=== PATIENT | male | born 1940 | race Caucasian/White ===

== ENCOUNTER 2018-06-12 07:02 | Day surgery (SDC) | payer OTHER ==
--- NOTE | 2018-06-07 17:04 | GHP ---
[f rep st] PREOP HISTORY AND PHYSICAL DATE OF ADMISSION: 06/12/2018 CHIEF COMPLAINT: Left inguinal hernia. HISTORY OF PRESENT ILLNESS: The patient is a 78-year-old male who presents for evaluation of a possi ble left inguinal hernia. The patient has noticed a left inguinal bulge for the past 3-4 years. It seems to flatten and reduce. He denies pain, nausea, vomiting, changes in bowel habits, and fevers. No dysuria. He denies any bulge on the right. He has tried to wear a hernia belt in the past, but does not feel that it helps. He has a history of open prostatectomy with a lower midline scar. PAST MEDICAL HISTORY: Hypertension. PAST SURGICAL HISTORY: Foot surgery, left hand surgery, prostatectomy, tonsillectomy. MEDICATIONS: Amlodipine, aspirin, fish oil, vitamin D3. ALLERGIES: No known drug allergies. FAMILY HISTORY: Noncontributory. REVIEW OF SYSTEMS: 10-point review of systems was performed and is negative, except for what is in t he HPI. PHYSICAL EXAMINATION: GENERAL: This is a well-appearing, well-nourished man in no acute distress. HEENT: Normocephalic, atraumatic. No gross hearing deficit. Mucous membranes moist. Pupils are eq ual and round. No scleral icterus. CARDIAC: Regular rate, regular rhythm. No peripheral edema. R ESPIRATORY: No increased work of breathing. Clear to auscultation bilaterally. ABDOMEN: Soft, non tender. Bowel sounds present. Old suprapubic vertical midline scar. Large left inguinal hernia myesha t is reducible, soft and nontender. No hernia palpated on the right side. MUSCULOSKELETAL: Normal gait. Normal nails. Moves all extremities equally. INTEGUMENTARY: Skin is warm and dry. No rashe s. NEUROLOGIC: Awake, alert. Motor grossly intact. PSYCHIATRIC: Normal mood and affect. DISCUSSION AND DECISION-MAKING: This is a 78-year-old male who will need a left inguinal hernia repa ir. Due to his open prostatectomy surgery, he will likely have adhesions and may not be able to perf orm the procedure laparoscopically. In that case, would switch to an open procedure. Also discussed risks and options in full, including bleeding, infection, injury to a nerve, bowel injury, bladder i njury, testicular ischemia, traumatic cord injury, recurrence, and patient wishes to proceed with luis felipe acuna. /[id number]/MODL
[2018-06-12] MEDS ORDERED: LR 1,000 ML IV ONE (07:43)
[2018-06-12] MEDS ORDERED: ceFAZolin 2 GM/DEXTROSE 100 ML IV ONE (07:43)
--- NOTE | 2018-06-12 07:49 | PDANEPAE ---
ANE History of Present Illness 78 year old male for inguinal hernia repair (laparoscopic). ANE Past Medical History - Cardiovascular History Hx Hypertension: Yes Hx Arrhythmias: No Hx Chest Pain: No Hx Coronary Artery / Peripheral Vascular Disease: No Hx CHF / Valvular Disease: No Hx Palpitations: No - Pulmonary History Hx COPD: No Hx Asthma/Reactive Airway Disease: No Hx Recent Upper Respiratory Infection: No Hx Oxygen in Use at Home: No Hx Sleep Apnea: No Sleep Apnea Screening Result - Last Documented: Positive - Neurologic History Hx Cerebrovascular Accident: No Hx Seizures: No Hx Dementia: No - Endocrine History Hx Diabetes: No - Renal History Hx Renal Disorders: No - Liver History Hx Hepatic Disorders: No - Neurological & Psychiatric Hx Hx Neurological and Psychiatric Disorders: No - Cancer History Hx Cancer: Yes Cancer History Comment: PROSTATE - Congenital Disorder History Hx Congenital Disorders: No - GI History Hx Gastrointestinal Disorders: No - Other Health History Other Health History: BRUISES EASILY - Chronic Pain History Chronic Pain: Yes (LT ING HERNIA) - Surgical History Prior Surgeries: PROSTATECTOMY. LT FOOT. TONSILLECTOMY. HEMORRHOIDECTOMY. LT HAND DUPUYTRENS ANE Review of Systems Review of Systems: - Exercise capacity METS (RN): 4 METS ANE Patient History - Allergies Allergies/Adverse Reactions: No Known Allergies Allergy (Unverified 02/02/14 10:48) - Home Medications Home Medications: ASPIRIN HS 02/02/14 [Last Taken Unknown] Amlodipine Bes/Olmesartan Med HS 06/08/18 [Last Taken Unknown] Herbals/Supplements -Info Only DAILY 06/08/18 [Last Taken Unknown] - Smoking Hx Smoking Status: Former smoker ANE Labs/Vital Signs - Vital Signs Height: 177.8 cm Weight: 75.189 kg
[2018-06-12] MEDS ORDERED: BUPIVACAINE 0.25% 30 ML SDV ONE (08:12)
--- NOTE | 2018-06-12 08:12 | PDANEPAE ---
ANE History of Present Illness 78 year old male for left inguinal hernia. ANE Past Medical History - Cardiovascular History Hx Hypertension: Yes Hx Arrhythmias: No Hx Chest Pain: No Hx Coronary Artery / Peripheral Vascular Disease: No Hx CHF / Valvular Disease: No Hx Palpitations: No - Pulmonary History Hx COPD: No Hx Asthma/Reactive Airway Disease: No Hx Recent Upper Respiratory Infection: No Hx Oxygen in Use at Home: No Hx Sleep Apnea: No Sleep Apnea Screening Result - Last Documented: Positive - Neurologic History Hx Cerebrovascular Accident: No Hx Seizures: No Hx Dementia: No - Endocrine History Hx Diabetes: No - Renal History Hx Renal Disorders: No - Liver History Hx Hepatic Disorders: No - Neurological & Psychiatric Hx Hx Neurological and Psychiatric Disorders: No - Cancer History Hx Cancer: Yes Cancer History Comment: PROSTATE - Congenital Disorder History Hx Congenital Disorders: No - GI History Hx Gastrointestinal Disorders: No - Other Health History Other Health History: BRUISES EASILY - Chronic Pain History Chronic Pain: Yes (LT ING HERNIA) - Surgical History Prior Surgeries: PROSTATECTOMY. LT FOOT. TONSILLECTOMY. HEMORRHOIDECTOMY. LT HAND DUPUYTRENS ANE Review of Systems Review of systems is: negative Review of Systems: - Exercise capacity Exercise capacity: >=4 METS METS (RN): 4 METS ANE Patient History - Allergies Allergies/Adverse Reactions: No Known Allergies Allergy (Unverified 02/02/14 10:48) - Home Medications Home medications: home medication list seen and reviewed Home Medications: ASPIRIN HS 02/02/14 [Last Taken 06/07/18] Amlodipine Bes/Olmesartan Med HS 06/08/18 [Last Taken 06/11/18 20:00] Herbals/Supplements -Info Only DAILY 06/08/18 [Last Taken 06/07/18] - NPO status NPO Status: no food or drink >8 hours NPO Since - Liquids (Date): 06/12/18 NPO Since - Liquids (Time): 05:30 NPO Since - Solids (Date): 06/11/18 NPO Since - Solids (Time): 20:00 - Anes Hx Anes Hx: no prior problems - Smoking Hx Smoking Status: Former smoker - Family Anes Hx Family Anes Hx: neg - N/A ANE Labs/Vital Signs - Vital Signs Vital Signs: reviewed preoperatively; see RN documention for details Blood Pressure: 168/85 Heart Rate: 70 Respiratory Rate: 17 O2 Sat (%): 98 Height: 177.8 cm Weight: 75.189 kg ANE Physical Exam - Airway Mallampati Score: Class 2 Mouth exam: normal dental/mouth exam - Pulmonary Pulmonary: no respiratory distress - Cardiovascular Cardiovascular: regular rate and rhythym - ASA Status ASA Status: II ANE Anesthesia Plan Anesthesia Plan: general endotracheal anesthesia
[2018-06-12] MEDS ORDERED: PROPOFOL 200 MG/20 ML VIAL ONE (08:24)
[2018-06-12] MEDS ORDERED: fentaNYL 100 MCG/2 ML INJ ONE (08:24)
[2018-06-12] MEDS ORDERED: ONDANSETRON 4 MG/2 ML VIAL ONE (08:30)
[2018-06-12] MEDS ORDERED: DEXAMETHASONE 4 MG/ML VIAL ONE (08:30)
--- NOTE | 2018-06-12 08:39 | PDHPUP ---
History & Physical Update H&P update statement: This history and physical update is based on an assessment of the patient which was completed after admission or registration (within 24 hours), but prior to the surgery/procedure. H&P update: H&P reviewed & patient examined, no change in patient's condition since H&P completed H&P changes: NONE
[2018-06-12] MEDS ORDERED: ceFAZolin 1 GM VIAL ONE ×2 (09:01)
[2018-06-12] MEDS ORDERED: fentaNYL 100 MCG/2 ML INJ IVP PRN (09:31)
[2018-06-12] MEDS ORDERED: HYDROCODONE/APAP 5/325 TAB PO PRN (09:31)
[2018-06-12] MEDS ORDERED: LR 500 ML IV PRN (09:31)
[2018-06-12] MEDS ORDERED: NALOXONE HCL 0.4 MG/ML INJ IVP PRN (09:31)
[2018-06-12] MEDS ORDERED: ONDANSETRON 4 MG/2 ML VIAL IVP PRN ×2 (09:31→09:59)
[2018-06-12] MEDS ORDERED: PHENYLEPHRINE HCL 100 MCG/ML SYR IVP PRN (09:31)
[2018-06-12] MEDS ORDERED: KETOROLAC 30 MG/1 ML SDV ONE (09:38)
[2018-06-12] MEDS ORDERED: SUGAMMADEX SODIUM 200 MG/2 ML VIAL IVP ONE (09:38)
--- NOTE | 2018-06-12 09:57 | POSTOPPROG ---
Post Op Note Date of Operation: 06/12/18 Surgeon: Ashok Berkowitz Anesthesiologist: lori Anesthesia: GET(General Endotracheal) Pre-op Diagnosis: lih Post-op Diagnosis: same Indication: pain Procedure: open lih repair Findings: very large indirect lih Inf/Abcess present in the surg proc area at time of surgery?: No Depth: Organ Space EBL: Minimal Complications: 0 Specimen(s): hernia sac
[2018-06-12] MEDS ORDERED: OXYCODONE/APAP 5/325 TAB PO PRN (09:59)
[2018-06-12] MEDS ORDERED: HYDROmorphONE/DILAUDID 1 MG/ML INJ IVP PRN (09:59)
[2018-06-12] MEDS ORDERED: ceFAZolin 1 GM VIAL IVP ONE (10:03)
--- NOTE | 2018-06-12 10:37 | POSTANESTH ---
Post Anesthetic Evaluation Cardiovascular Status: Normal, Stable, Similar to Pre-Op Cond Respiratory Status: Normal, Stable, Similar to Pre-op Cond. Level of Consciousness/Mental Status: Can Participate in Eval, Alert and Oriented Pain Control: Adequate, Prn Tx Ordered Nausea/Vomiting Control: Adequate, Prn Tx Ordered Complications Possibly Related to Anesthesia: None Noted
[2018-06-12 11:40] VITALS: BP 137/92
--- NOTE | 2018-07-02 11:24 | GOP ---
[f rep st] OPERATIVE REPORT DATE OF OPERATION: 06/12/2018 SURGEON: Ashok Berkowitz MD ANESTHESIOLOGIST: Cesar Nash MD PREOPERATIVE DIAGNOSIS: Left inguinal hernia. POSTOPERATIVE DIAGNOSIS: Left inguinal hernia. PROCEDURE PERFORMED: Open left inguinal hernia repair with mesh. FINDINGS: The patient was found to have a very large indirect left inguinal hernia. DESCRIPTION OF PROCEDURE: The patient was taken to the operating room where he received satisfactory general endotracheal anesthesia by Dr. Nash. He was placed in the supine position, prepped and dr aped in the usual sterile fashion. A left inguinal incision was made and carried through the subcuta neous tissue. Hemostasis was obtained with electrocautery and 3-0 Vicryl ties. The external oblique was opened to the external ring. The ilioinguinal nerve was identified and spared from injury. The cord was mobilized from the floor of the canal. A large indirect sac was associated with the cord. This was dissected off the cord structures and back to the internal ring. The sac was opened, and i ts contents were reduced. The sac was doubly suture ligated with 2-0 Vicryl. The wound was infiltra mayda with 0.5% Marcaine, and excess sac was amputated. This was seen to withdraw well within the inte rnal ring. The internal ring was snugged up with some 0 Surgilon interrupted sutures, and then, a Co vidien polyester mesh patch was placed over the inguinal floor. It was secured in place to the shelv ing edge of the inguinal ligament, to the lacunar ligament, and to the internal oblique fascia. The patch was slit laterally to pass the limb around the cord structures. Cord and nerve were replaced i n the anatomic position. External oblique was closed with 2-0 Vicryl, subcu with 3-0 Vicryl and the skin with a 4-0 Monocryl subcuticular stitch. All levels were infiltrated with 0.5% Marcaine. He to lerated the procedure well, taken to the recovery room in good condition. There were no complication s. /[id number]/MODL
== END 2018-06-12 11:49 | disposition home or self-care (01) ==
LOC: FSGY 07:02
PROVIDERS: ATTEND Surgery
PROC: 0YU60JZ Supplement Left Inguinal Region with Synthetic Substitute, Open Approach (ICD-10-PCS; principal; 2018-06-12 08:30)
DX: K40.90 Unilateral inguinal hernia, without obstruction or gangrene, not specified as recurrent (principal); I10 Essential (primary) hypertension; Z87.891 Personal history of nicotine dependence
CPT/HCPCS: C1781; J0690; J1100; J1885; J2405; J2704; J3010